=== PATIENT | male | born 1955 | race Caucasian/White ===

== ENCOUNTER → 2017-08-29 | Outpatient (CLI) | payer BC ==
[~2017-08-29] MED LIST: FENTANYL CITRATE/PF 100MCG/2 ML INJ ONE; KETOROLAC TROMETHAMINE 30 MG/ML VIAL ONE; MIDAZOLAM HCL 2 MG/2 ML VIAL ONE
[2017-08-29 08:41] LABS: INR 0.98; PROTHROMBIN TIME 12.2 seconds (11.9-14.5)
[2017-08-29 08:42] LABS: PARTIAL THROMBOPLASTIN TIME 31.9 seconds (23.8-35.5)
--- NOTE | 2017-08-29 11:04 | Diagnostic Imaging Report ---
CT-guided right iliac bone biopsy 08/29/2017 Pre-Procedure Diagnosis: Prostate cancer Post-procedure Diagnosis:Prostate cancer Chip Unloader: Marlin Livingston Administrative Intern: None Sedation: Moderate sedation was provided with intravenous fentanyl and Versed. Heart rate, rhythm and oxygen saturation were monitored and real-time by a dedicated interventional radiology nurse under my direct supervision. Blood pressure was monitored in 5 minute increments. 1% lidocaine was used for local anesthesia. Total sedation time: 45 minutes. Radiation Dose:930.64 mGy-cm (DLP) Estimate blood loss: <5 mL Blood administered: None Complications: None Implants/Grafts: None Specimen: Right iliac bone. Procedure: Informed consent was obtained and the patient placed prone. A timeout was performed, followed by souvenir and novelty maker CT within the region of interest. The right gluteal region was prepped and draped in standard sterile fashion. Using intermittent CT guidance, a 15-gauge bone biopsy guide was advanced to a sclerotic lesion in the right iliac wing. Upon confirmation of positioning with CT, an 18-gauge core specimen was obtained, and submitted in formalin. Multiple FNAs were also performed with 20 cm Chiba needles, with specimens submitted for cytology. At the end of the procedure the needles were removed and a sterile dressing applied. The patient tolerated the procedure well. Findings: Multifocal sclerotic lesions in the right hemipelvis suggesting prostate cancer metastasis. Impression: Successful CT-guided right iliac sclerotic bone lesion biopsy under moderate sedation. This report was generated with voice-recognition technology. Errors in county manager can occur. Please interpret accordingly and contact a radiologist if there are any questions regarding the report. Signed by: Dr. Austin Livingston M.D. on 08/29/2017 11:01 AM
--- NOTE | 2017-08-29 11:04 | Diagnostic Imaging Report ---
CT-guided right iliac bone biopsy 08/29/2017 Pre-Procedure Diagnosis: Prostate cancer Post-procedure Diagnosis:Prostate cancer Encoding Clerk: Marlin Livingston Trade Economist: None Sedation: Moderate sedation was provided with intravenous fentanyl and Versed. Heart rate, rhythm and oxygen saturation were monitored and real-time by a dedicated interventional radiology nurse under my direct supervision. Blood pressure was monitored in 5 minute increments. 1% lidocaine was used for local anesthesia. Total sedation time: 45 minutes. Radiation Dose:930.64 mGy-cm (DLP) Estimate blood loss: <5 mL Blood administered: None Complications: None Implants/Grafts: None Specimen: Right iliac bone. Procedure: Informed consent was obtained and the patient placed prone. A timeout was performed, followed by paper control clerk CT within the region of interest. The right gluteal region was prepped and draped in standard sterile fashion. Using intermittent CT guidance, a 15-gauge bone biopsy guide was advanced to a sclerotic lesion in the right iliac wing. Upon confirmation of positioning with CT, an 18-gauge core specimen was obtained, and submitted in formalin. Multiple FNAs were also performed with 20 cm Chiba needles, with specimens submitted for cytology. At the end of the procedure the needles were removed and a sterile dressing applied. The patient tolerated the procedure well. Findings: Multifocal sclerotic lesions in the right hemipelvis suggesting prostate cancer metastasis. Impression: Successful CT-guided right iliac sclerotic bone lesion biopsy under moderate sedation. This report was generated with voice-recognition technology. Errors in threat monitoring analyst can occur. Please interpret accordingly and contact a radiologist if there are any questions regarding the report. Signed by: Dr. Austin Livingston M.D. on 08/29/2017 11:01 AM
== END ==
LOC: CT 07:48
PROVIDERS: ATTEND Urology
DX: D40.0 Neoplasm of uncertain behavior of prostate (principal)
CPT/HCPCS: 20225; 36415; 77012; 85049; 85610; 85730; 88172; 88173; 88304; 88305; 88311; J1885; J2250